=== PATIENT | male | born 1930 | race Caucasian/White ===

== ENCOUNTER 2018-03-24 10:06 | Emergency (ER) | payer OTHER ==
[~2018-03-24] VITALS: Ht 160 cm; Wt 84.4 kg
[~2018-03-24 10:06] MED LIST: ASPIR 8181 MG PO; BENAZEPRIL HYDR20 M1 PO; CARVEDILOL3.125 M1 PO; CARVEDILOL6.25 M1 PO; COL100 PO; ECO81 PO; FERROUS SULFAT325 M2 PO; FUROSEMIDE20 MG PO; LASIX20 MG PO; LISINOPRIL2.5 MG PO; LISINOPRIL20 MG PO; NITROSTAT0.4 MG SL; OMEPRAZOLE DR20 M1 PO; PRA40 PO; PRAVASTATIN SOD40 M1 PO; PRAVASTATIN40 M1 PO; PSEUDOPHEDRINE30 MG PO; SUDOGEST30 MG PO; TAMSULOSIN HCL0.4 MG PO; TAMSULOSIN HYD0.4 M1 PO; TYL325 PO
[2018-03-24 10:11] VITALS: Ht 160 cm; Wt 84.4 kg
[2018-03-24 10:59] LABS: CALCIUM 8.4 mg/dL (8.5-10.1); CHLORIDE SERUM 104 mmol/L (98-107); CREATININE SERUM 1.1 mg/dL (0.7-1.3); GLUCOSE SERUM 125 mg/dL (74-106); POTASSIUM SERUM 4.3 mmol/L (3.5-5.1); SODIUM SERUM 139 mmol/L (136-145)
[2018-03-24 11:04] LABS: ALBUMIN 3.6 g/dL (3.4-5.0); ALKALINE PHOSPHATASE 61 U/L (46-116); ALT/SGPT 17 U/L (16-63); AST/SGOT 19 U/L (15-37); BILIRUBIN TOTAL 0.4 mg/dL (0.20-1.00); TOTAL PROTEIN, SERUM 7.4 g/dL (6.4-8.2)
[2018-03-24 11:48] LABS: BASOPHIL % 0.2 % (0-2); PLATELET COUNT 168 x10^3mcL (130-400); RED CELL DISTRIBUTION WIDTH 13.9 % (11.5-14.5)
[2018-03-24 13:22] VITALS: BP 120/77
== END 2018-03-24 13:23 | disposition home or self-care (01) ==
LOC: ED 10:06
PROVIDERS: Emergency Medicine
DX: R06.00 Dyspnea, unspecified (principal); R60.0 Localized edema; J45.909 Unspecified asthma, uncomplicated; I10 Essential (primary) hypertension; E78.00 Pure hypercholesterolemia, unspecified; Z86.2 Personal history of diseases of the blood and blood-forming organs and certain disorders involving the immune mechanism; Z98.890 Other specified postprocedural states
CPT/HCPCS: 83880; J1940; Q0092

== ENCOUNTER 2019-03-16 01:41 | Emergency (ER) | payer OTHER ==
[~2019-03-16] VITALS: Ht 162.6 cm; Wt 85.7 kg
[2019-03-16 01:46] VITALS: Ht 162.6 cm; Wt 85.7 kg
[2019-03-16 02:53] VITALS: BP 131/66
== END 2019-03-16 02:53 | disposition home or self-care (01) ==
LOC: ED 01:41
DX: R00.2 Palpitations (principal); I10 Essential (primary) hypertension; E78.00 Pure hypercholesterolemia, unspecified; N40.0 Benign prostatic hyperplasia without lower urinary tract symptoms; Z95.1 Presence of aortocoronary bypass graft

== ENCOUNTER 2019-03-26 09:28 | Emergency (ER) | payer OTHER ==
[~2019-03-26] VITALS: Ht 160 cm; Wt 87.5 kg
[2019-03-26 09:38] VITALS: Ht 160 cm; Wt 87.5 kg
[2019-03-26 11:02] LABS: T3 TOTAL 0.77 ng/mL
[2019-03-26 11:12] LABS: CHLORIDE SERUM 103 mmol/L (98-107); POTASSIUM SERUM 5.2 mmol/L (3.5-5.1); SODIUM SERUM 142 mmol/L (136-145)
[2019-03-26 11:13] LABS: ALBUMIN 3.6 g/dL (3.4-5.0); ALKALINE PHOSPHATASE 63 U/L (46-116); ALT/SGPT 25 U/L (16-63); AST/SGOT 27 U/L (15-37); BILIRUBIN TOTAL 0.62 mg/dL (0.20-1.00); CALCIUM 8.4 mg/dL (8.5-10.1); CARBON DIOXIDE 35.6 mmol/L (21-32); GLUCOSE SERUM 118 mg/dL (74-106); TOTAL PROTEIN, SERUM 7.1 g/dL (6.4-8.2)
[2019-03-26 11:21] LABS: FREE T4 0.94 ng/dL (0.76-1.46); FREE THYROXINE INDEX 2.8 ug/dL (1.4-4.5); T4(THYROXINE) 7.7 ug/dL (4.7-13.3)
[2019-03-26 13:00] LABS: BASOPHIL % 0.2 % (0-2); PLATELET COUNT 175 x10^3mcL (130-400); RED CELL DISTRIBUTION WIDTH 14.3 % (11.5-14.5)
[2019-03-26 13:25] VITALS: BP 110/62
== END 2019-03-26 13:25 | disposition home or self-care (01) ==
LOC: ED 09:28
PROVIDERS: Emergency Medicine
DX: F41.9 Anxiety disorder, unspecified (principal); I10 Essential (primary) hypertension; E78.00 Pure hypercholesterolemia, unspecified
CPT/HCPCS: 36415; 83880; 84439; Q0092